=== PATIENT | female | born 1955 | race Caucasian/White ===

== ENCOUNTER 2016-12-25 11:20 | Observation (INO) | payer MEDICAID ==
[~2016-12-25] VITALS: Ht 175.3 cm; Wt 95.9 kg
--- NOTE | ~2016-12-25 | HEMODYNAMI ---
PATIENT:JOHN PRETTY MEDICAL RECORD: [id number] : 53 LOCATION:[facility] D2124 [facility]# [id number] ADMISSION DATE: 12/25/16 Generatedon:12/26/201611:09 Patient name: JOHN PRETTY Patient #: [id number] SSN: D OB: 1955 Date of study: 12/26/2016 Page: Of Hemodynamic Procedure Report Patient Data Patient Demographics Procedure consent was obtained First Name: JOHN Gender: Female Last Name: MARIA DE JESUS : 1955 [facility] Initial: R Age: 61 year(s) Patient #: [id number] Race: Unknown Additional ID: [id number] Contact details [address]: [address] [place] [address] State: [place] City: [place] Zip code: [address] Past Medical History Allergies Allergen Reaction Date Comments Reported Other allergy 12/26/2016 Robaxin, Demerol, Codiene Admission Admission Data Admission Date: 12/25/2016 Admission Time: 14:55 Room #: D.2124 Lab Results Lab Result Date: 12/26/2016 Lab Result Time: 0:00 Biochemistry Name Units Result Min Max Creatinine mg/dl 0.8 --(-*--)-- 0.6 1.3 CBC Name Units Result Min Max Hemoglobin g/dl 14.7 --(-*--)-- 13.5 17.5 Procedure Procedure Types Cath Procedure Diagnostic Procedure C [facility] w/Coronaries Miscellaneous Procedures Moderate Sedation up to 15 minutes Procedure Description Procedure Date Procedure Date: 12/26/2016 Procedure Start Time: 10:58 Procedure End Time: 11:09 Procedure Staff Name Function Clay Davis MD Performing Physician Fazal Locke RT Scrub John Farr RN Nurse Michelle Tristan RT Monitor Procedure Data Cath Procedure Fluoroscopy Diagnostic fluoroscopy Total fluoroscopy Time: 0.8 time: 0.8 min min Diagnostic fluoroscopy Total fluoroscopy dose: 382 dose: 382 mGy mGy Contrast Material Contrast Material Type Amount (ml) Isovue 300 67 Entry Location Entry Primary Successful Side Size Upsize Upsize Entry Closure Aguila ccessful Closure Location (Fr) 1 (Fr) 2 (Fr) Remarks Device Remarks Radial Right 6 Fr Mechanical artery Short Compression Estimated blood loss: 5 ml Diagnostic catheters Device Type Used For End Catheter Placement Terumo 5Fr Brian 110cm LV Angiography catheter Terumo 5Fr Brian 110cm Left Coronary catheter Angiography Terumo 5Fr Brian 110cm Right Coronary catheter Angiography Procedure Complications No complications Procedure Medications Medication Administration Route Dosage Oxygen NC 2 l/min Heparin Flush Bag added to field 2 bags (1000units/500ml NS) Lidocaine 2% added to field 20 Radial Cocktail added to field 1 syringe (Verapomil 2mg/Nitro 400mcg/Heparin 1500units) Versed I.V. 1 mg Fentanyl I.V. 50 mcg Radial Cocktail I.A. 1 syringe (Verapomil 2mg/Nitro 400mcg/Heparin 1500units) Versed I.V. 1 mg Fentanyl I.V. 50 mcg Hemodynamics Rest HGB: 14.7 (g/dl) Heart Rate: 70 (bpm) Pressure Samples Time Site Value (mmHg) Purpose Heart Use Rate(bpm) 11:01 LV 109/11,12 EDP 75 11:02 AO 110/68(85) Pullback 79 11:02 LV 122/1,18 Pullback 79 Gradients Valve Time Site 1 Site 2 Mean SEP/DFP Peak To Heart Use (mmHg) (sec/min) Peak Rate (mmHg) (bpm) Aortic 11:02 LV AO 6 19 12 79 122/1,18 110/68(85) Calculations Valve P-P Mean Valve Index Valve Source Name Gradient Area Flow (cm2) Aortic 12 6 12 6 Snapshots Pre Cath Intra NCS Post Cath Vital Signs Time Heart Resp SPO2 etCO2 VP5xnns NIBP Rhythm Pain Sedation Rate (ipm) (%) (mmHg) (mmHg) (mmHg) Status Level (bpm) 10:39:00 67 16 97 0 0 133/62(98) NSR 0 (11) 10(A) , No pain 10:43:18 62 15 98 0 0 126/56(98) NSR 0 (11) 10(A) , No pain 10:47:40 69 14 98 0 0 120/54(87) NSR 0 (11) 10(A) , No pain 10:51:58 69 16 95 0 0 107/55(76) NSR 0 (11) 10(A) , No pain 10:56:12 63 16 95 0 0 95/50(72) NSR 0 (11) 10(A) , No pain 11:01:09 72 16 96 0 0 120/57(84) NSR 0 (11) 9(A) , No pain 11:05:21 83 16 96 0 0 100/53(76) NSR 0 (11) 10(A) , No pain Medications Time Medication Route Dose Verified Delivered Reason Notes Effectiveness by by 10:38:04 Oxygen NC 2 l/min Clay John Per Octa Yordan RIBERA physician 10:38:14 Heparin Flush added 2 bags Clay Clay used for Bag to [facility] procedure (1000units/500ml field MD XAVIER NS) 10:38:22 Lidocaine 2% added 20ml Clay [facility] XAVIER 10:41:15 Radial Cocktail added 1 Clay Clay used for (Verapomil to syringe [facility] procedure 2mg/Nitro field MD XAVIER 400mcg/Heparin 1500units) 10:55:36 Versed I.V. 1 mg Clay John for sedation St. Aditya Farr RN, MD 10:55:43 Fentanyl I.V. 50 mcg Clay John for sedation St. Aditya Farr RN, MD 10:58:43 Versed I.V. 1 mg Clay John for sedation St. Aditya Farr RN, MD 10:58:57 Fentanyl I.V. 50 mcg Clay John for sedation RyanAditya Farr RN, MD 11:00:40 Radial Cocktail I.A. 1 Clay Clay for (Verapomil syringe Octa Ryan hypertension 2mg/Nitro MD XAVIER 400mcg/Heparin 1500units) Procedure Log Time Note 10:25:47 Fazal Locke RT(R) sent for patient. Start room use. 10:25:48 Time tracking: Call back 10:25:58 Plan of Care:Hemodynamics will remain stable., Cardiac rhythm will remain stable., Comfort level will be maintained., Respiratory function will remain adequate., Patient/ family verbilizes understanding of procedure., Procedure tolerated without complication., Recovers from procedure without complications.. 10:29:17 Patient received from PCU to CCL 1 Alert and oriented. Tansferred to table in Supine position. 10:29:18 Warm blankets applied, and nic hugger turned on for patient comfort. 10:29:19 Correct patient and procedure confirmed by team. 10:29:20 Signed procedure consent form obtained from patient. 10:29:21 ECG and BP/O2 sat monitors applied to patient. 10:29:22 Full Disclosure recording started 10:37:48 Vital chart was started 10:37:49 Baseline sample Acquired. 10:38:04 Oxygen 2 l/min NC was given by John Farr RN; Per physician; 10:38:14 Heparin Flush Bag (1000units/500ml NS) 2 bags added to field was given by Clay Davis MD; used for procedure; 10:38:22 Lidocaine 2% 20ml vial added to field was given by Clay Davis MD; used for procedure; 10:41:15 Radial Cocktail (Verapomil 2mg/Nitro 400mcg/Heparin 1500units) 1 syringe added to field was given by Clay Davis MD; used for procedure; 10:42:06 Rhythm: sinus rhythm 10:42:16 H&P Date Dictated: 12/26/2016 Within 30 days and on chart.. 10:42:19 Pre-procedure instructions explained to patient. 10:42:20 Pre-op teaching completed and patient verbalized understanding. 10:42:21 Family unavailable. 10:42:28 Patient NPO since Dinner. 10:42:46 Patient allergic to Other allergyRobaxin, Demerol, Codiene 10:42:48 Is the patient allergic to Iodine/contrast media? No. 10:42:50 Is patient on blood thinner?No 10:42:53 Patient diabetic? No. 10:42:56 Previous problem with sedation/anesthesia? No ? 10:42:58 Snore? Yes 10:42:59 Sleep apnea? No 10:43:00 Deviated septum? No 10:43:00 Opens mouth fully? Yes 10:43:01 Sticks out tongue? Yes 10:43:03 Airway obstruction? No ? 10:43:05 Dentures? No ? 10:43:09 Pre procedure: right dorsailis pedis pulse 2+ Normal; easily identifiable; not easily obliterated 10:43:12 Modified Darren's test Ulnar < 7 seconds 10:43:14 Patient pain scale 0/10 ?. 10:43:18 IV patent on arrival in left hand with 0.9% NaCl at [facility]. 10:44:45 Lab Result : Hemoglobin 14.7 g/dl 10:44:45 Lab Result : Creatinine 0.8 mg/dl 10:44:49 Lab results completed and on chart. 10:44:54 Right Radial & Right Groin area was prepped with chlora-prep and draped in sterile fashion 10:44:55 Alarms reviewed by R. N. 10:44:55 Sharps counted by scrub and verified by R.N. 10:44:59 Use device set Radial Dx 10:45:00 Acist Syringe opened to sterile field. 10:45:00 Medline Cath Pack opened to sterile field. 10:45:01 Bag Decanter opened to sterile field. 10:45:01 Terumo 6Fr Slender Glidesheath opened to sterile field. 10:45:02 St Jairo 260cm J .035 wire opened to sterile field. 10:45:02 Acist Hand Control opened to sterile field. 10:45:02 Acist Manifold opened to sterile field. 10:45:03 Tegaderm 4 x 4 opened to sterile field. 10:48:45 Physician paged 10:49:18 Zero performed for pressure channel P1 10:49:22 Zero performed for pressure channel P1 10:49:26 Zero performed for pressure channel P1 10:49:29 Zero performed for pressure channel P1 10:49:33 Zero performed for pressure channel P1 10:55:09 Final Timeout: patient, procedure, and site verified with staff and physician. All members of the team are in agreement. 10:55:12 Right Radial site verified by team. 10:55:14 Physical assessment completed. ASA score P 2 - A patient with mild systemic disease as per Clay Davis MD. 10:55:18 Sedation plan: IV Moderate Sedation Versed, Fentanyl 10:55:36 Versed 1 mg I.V. was given by John Farr RN; for sedation; 10:55:43 Fentanyl 50 mcg I.V. was given by John Farr RN; for sedation; 10:58:14 Procedure started. 10:58:21 Local anesthetic to right radial artery with Lidocaine 2% by Clay Davis MD.INITIAL ACCESS ONLY 10:58:43 Versed 1 mg I.V. was given by John Farr RN; for sedation; 10:58:57 Fentanyl 50 mcg I.V. was given by John Farr RN; for sedation; 11:00:04 A 6 Fr Short sheath was inserted into the Right Radial artery 11:00:40 Radial Cocktail (Verapomil 2mg/Nitro 400mcg/Heparin 1500units) 1 syringe I.A. was given by Clay Davis MD; for hypertension; 11:01:02 A Terumo 5Fr Brian 110cm catheter was advanced over the wire and used for LV Angiography. 11:01:48 LV gram done using MOREL 11:01:49 LV hemodynamics recorded. 11:01:56 Injector settings: Ml/sec: 10, Volume: 20, 11:02:00 EF : 55 % 11:02:31 A Terumo 5Fr Brian 110cm catheter was advanced over the wire and used for Left Coronary Angiography. 11:03:38 A Terumo 5Fr Brian 110cm catheter was advanced over the wire and used for Right Coronary Angiography. 11:03:40 Catheter removed. 11:03:52 Sheath removed intact; hemostasis achieved with Mechanical Compression to the Right Radial artery. 11:03:59 Terumo TR Band Standard opened to sterile field. 11:04:03 Procedure ended.(Physican Out) 11:04:15 Fluoroscopy time 00.80 minutes. 11:04:20 Fluoroscopy dose: 382 mGy 11:04:20 Flurop Dose total: 382 11:04:24 Contrast amount:Isovue 300 67ml. 11:04:26 Sharps counted by scrub and verified by R.N. 11:04:27 TR band inflated with 12cc of air. 11:04:30 Insertion/operative site no bleeding no hematoma. 11:04:38 Post right radial artery:stable, clean and dry 11:04:40 Post Procedure Pulses reassessed and unchanged 11:04:47 Post-procedure physical assessment completed. ASA score P 2 - A patient with mild systemic disease as per Clay Davis MD. 11:04:50 Post procedure rhythm: unchanged. 11:04:53 Estimated blood loss: 5 ml 11:04:54 Post procedure instruction explained to patient.Patient verbalizes understanding. 11:04:55 Patient needs reinforcement of post procedure teaching. 11:05:03 Procedure type changed to Cath procedure, Diagnostic procedure, LHC, LHC w/Coronaries, Miscellaneous Procedures, Moderate Sedation up to 15 minutes 11:05:16 Procedure Complication : No complications 11:05:18 See physician's report for complete and final results. 11:06:47 Procedure and supply charges have been captured, reviewed, submitted and are correct. 11:09:06 Vital chart was stopped 11:09:08 Report given to PCU. 11:09:12 Patient transfered to PCU with Bed. 11:09:21 Procedure ended. 11:09:21 Full Disclosure recording stopped 11:09:27 End room use (Document Last) Device Usage Item Name Manufacture Quantity Catalog Hospital Part Current Minimal Lot# / Number Charge Number Stock Stock Serial# Code Acist Acist 1 90183 749078 169585 800713 20 Syringe [employer] Inc Medline Cardinal 1 [id number] [id number] 51909 [id number] 5 Cath Pack Health Bag Microtek 1 2001S 225038 93420 098007 5 Decanter [employer]. Terumo 6Fr Terumo 1 [id number] 923551 337252 915521 [address] St Jairo 1 395080 383604 319803 326542 30 260cm J .035 wire Acist Hand Acist 1 81037 856033 069080 130904 5 Control Medical [employer] Inc Acist Acist 1 91888 333228 097230 799301 5 Manifold Medical [employer] Inc Tegaderm 4 3M 1 1626W 010093 025450 706837 5 x 4 Terumo 5Fr Terumo 1 42-6091 886374 954790 904908 5 Brian 110cm catheter Terumo TR Terumo 1 [id number] 991025 290856 276758 40 Band Standard Signature Audit [place] Stage Time Signature Unsigned Intra-Procedure 12/26/2016 Michelle 11:09:46 AM Counts RT(R) Signatures Monitor : Michelle Signature : Counts RT Date : Time : [address] [place] [address]
[2016-12-25 12:08] LABS: BASOPHILS 0.3 % (0.0-2.0); EOSINOPHILS 2.1 % (0-7); HEMATOCRIT 42.2 % (36.0-48.0); HEMOGLOBIN 14.1 g/dL (12-16); IMMATURE GRANULOCYTES 0.3 % (0-5); LYMPHOCYTES 30.4 % (15-50); MCH 31.1 pg (26.0-34.0); MCHC 33.4 g/dL (31.0-37.0); MEAN PLATELET VOLUME 10.5 fL (7.4-10.4); MONOCYTES 6.3 % (2-11); NEUTROPHILS 60.6 % (40-80); PLATELET COUNT 289 10x3/uL (130-400); RBC 4.54 10x6/uL (4.00-5.40); RDW 13.3 % (11.5-14.5)
[2016-12-25 12:19] LABS: ALKALINE PHOSPHATASE 98 U/L (46-116); ALT (SGPT) 24 U/L (10-68); BILIRUBIN - TOTAL 0.52 mg/dL (0.2-1.3); CALC OSMOLALITY 280 mosm/kg (275-300); CALCIUM 9.4 mg/dL (8.5-10.1); CARBON DIOXIDE 29.9 mmol/L (21.0-32.0); CHLORIDE - SERUM 102 mmol/L (98-107); CREATININE - SERUM 0.9 mg/dL (0.6-1.3); GLUCOSE 108 mg/dL (74-106); POTASSIUM - SERUM 3.8 mmol/L (3.5-5.1); PROTEIN - SERUM 7.9 g/dL (6.4-8.2); SODIUM 140 mmol/L (136-145); UREA NITROGEN 14 mg/dL (7-18); eGFR NON AFRICAN AMERICAN 67 mL/min (90-120)
[2016-12-25 12:31] LABS: CHOLESTEROL, TOTAL 259 mg/dL (0-200); CKMB 0.9 U/L (0.0-3.6); CREATINE KINASE 54 UL (21-215); HDL CHOLESTEROL 43 mg/dL (32-96); LDL CHOLESTEROL 173 mg/dL (0-100); MAGNESIUM - SERUM 2.2 mg/dL (1.8-2.4); TRIGLYCERIDE 215 mg/dL (30-200)
[2016-12-25 12:36] LABS: TROPONIN-I < 0.017 ng/mL (0.000-0.060)
[2016-12-25] MEDS ORDERED: BAYER CHEWABLE81 MG PO (15:34)
[2016-12-25] MEDS ORDERED: HYZAAR 50-12.51 TAB PO (15:34)
[2016-12-25] MEDS ORDERED: K-TAB10 MEQ PO (15:35)
[2016-12-25 15:36] VITALS: BP 107/83; BMI 26.2
--- NOTE | 2016-12-25 15:53 | NUR ---
PT TO ROOM ALERT AND ORIENTED VS WNL. PT SITTING UP IN BED EATING. DENIES NEEDS. ON TELE. ADMISSION COMPLETE WILL CONT TO MONITOR.
--- NOTE | 2016-12-25 17:53 | NUR ---
PT SITTING UP IN BED DENIES NEEDS AT THIS TIME WILL CONT TO MONITOR.
--- NOTE | 2016-12-25 20:19 | NUR ---
RESTING IN BED. TALKATIVE. NONLABORED RESPIRATIONS ON ROOM AIR. SR PER TELEMETRY. DENIES PAIN OR DISCOMFORT AT THIS TIME. SALINE LOCK TO LEFT A/C. SEE ASSESSMENT. CPOC. CALL LIGHT IN REACH.
[2016-12-25 20:55] VITALS: BP 119/66
[2016-12-26 00:11] VITALS: BP 107/65
--- NOTE | 2016-12-26 04:37 | NUR ---
PT HAS RESTED WITH NO DISTRESS THIS SHIFT. SR PER TELEMETRY. SALINE LOCK TO LEFT A/C. NPO UNTIL SEEN BY LABORER ROAD THIS AM.
[2016-12-26 04:49] VITALS: BP 113/64
--- NOTE | 2016-12-26 07:50 | NUR ---
ASSESSMENT DONE. PT SITTING UP IN BED WATCHING TV. A/O. DENIES CP OR DISCOMFORT AT THIS TIME. DENIES SOB, BUT C/O A "TIGHTNESS" WHEN SHE TRIES TO TAKE A BIG BREATH. PT CURRENTLY 98% ON RA, BUT HAS NC IN ROOM. NURSE PUT PT ON O2 AT 2L. WILL CONT. TO MONITOR. CALL LIGHT WITH IN REACH. PT CONTS. TO BE NPO PENDING ORDERS FROM DR. QUESADA.
[2016-12-26 08:01] VITALS: BP 115/66
--- NOTE | 2016-12-26 09:45 | NUR ---
UP ADLIB IN ROOM. CENTRAL SUPPLY TECHNICIAN AT ASSISTING WITH NEEDS. WILL CONT. PLAN OF CARE.
--- NOTE | 2016-12-26 10:00 | NUR ---
CONSENTS SIGNED FOR HEART CATH. PRE-OP MEDS GIVEN
--- NOTE | 2016-12-26 10:25 | NUR ---
PT TO COUNTERINTELLIGENCE AGENT VIA BED.
[2016-12-26 10:26] LABS: BASOPHILS 0.4 % (0.0-2.0); EOSINOPHILS 2.5 % (0-7); HEMATOCRIT 45.8 % (36.0-48.0); HEMOGLOBIN 14.7 g/dL (12-16); IMMATURE GRANULOCYTES 0.1 % (0-5); LYMPHOCYTES 34.7 % (15-50); MCH 31.1 pg (26.0-34.0); MCHC 32.1 g/dL (31.0-37.0); MEAN PLATELET VOLUME 10.8 fL (7.4-10.4); MONOCYTES 6.8 % (2-11); NEUTROPHILS 55.5 % (40-80); PLATELET COUNT 254 10x3/uL (130-400); RBC 4.73 10x6/uL (4.00-5.40); RDW 13.5 % (11.5-14.5); WBC 8.4 10x3/uL (4.8-10.8)
[2016-12-26 10:31] VITALS: Ht 175.3 cm; Wt 95.9 kg
[2016-12-26 10:31] LABS: CALC OSMOLALITY 277 mosm/kg (275-300); CALCIUM 9.3 mg/dL (8.5-10.1); CARBON DIOXIDE 24.8 mmol/L (21.0-32.0); CHLORIDE - SERUM 103 mmol/L (98-107); CREATININE - SERUM 0.8 mg/dL (0.6-1.3); GLUCOSE 104 mg/dL (74-106); POTASSIUM - SERUM 3.6 mmol/L (3.5-5.1); SODIUM 138 mmol/L (136-145); UREA NITROGEN 17 mg/dL (7-18); eGFR NON AFRICAN AMERICAN 77 mL/min (90-120)
[2016-12-26 10:34] LABS: MCV 96.8 fL (80.0-100.0)
--- NOTE | 2016-12-26 11:20 | NUR ---
PT BACK FROM [facility] [facility]EARCHER. TR BAND TO RIGHT WRIST. SITE WITTOUT S/S OF BLEEDING OR HEMATOMA. PT WEARING SPLINT TO WRIST WELL. INTRUCTED PT TO REFRAIN FROM MOVING HAND OR WRIST. PT VERBALIZED UNDERSTANDING. DENIES PAIN OR DISCOMFORT AT THIS TIME. CALL LIGHT WITH IN REACH. WILL CONT. TO MONITOR. VS- B/P 131/58, HR-70, TEMP 97.3, R-16.
[2016-12-26 12:02] VITALS: BP 131/58
--- NOTE | 2016-12-26 13:27 | NUR ---
5ML OF AIR RELEASED FROM TR BAND. SPLINT STILL IN PLACE. NO BLEEDING OR HEMATOMA NOTED. WILL CONT. TO MONITOR.
--- NOTE | 2016-12-26 14:41 | NUR ---
AIR RELEASED FROM TR BAND AND TR BAND AND SPLINT REMOVED. TO BLEEDING OR S/S OF HEMATOMA. PT'S TELEMETRY REMOVED. PT AWAITING D/C PAPERWORK. AND STAFFF WILL CALL PT A TAXI. NURSE EXPLAINED PT IS TO REFRAIN FROM DRIVING FOR 24H AND CANNOT DRIVE TO [place] UNTIL WEDNESDAY. PT VERBALIZED UNDERSTANDING.
--- NOTE | 2016-12-26 15:59 | NUR ---
D/C INSTRUCTIONS GIVEN TO PT. IV REMOVED. PT TO D/C HOME VIA TAXI.
--- NOTE | 2016-12-26 16:01 | NUR ---
PT TAKEN TO FRONT ENTRANCE VIA W/C TO WAIT ON TAXI.
--- NOTE | 2016-12-28 08:24 | HP ---
PATIENT: JOHN PRETTY MEDICAL RECORD: [id number] ACCOUNT: [id number] LOCATION:[address] : 53 ADMISSION DATE: 12/25/16 HISTORY AND PHYSICAL EXAMINATION HISTORY OF PRESENT ILLNESS: A 61-year-old lady, who I have seen previously with a history of chest pain. She underwent a Cardiolite stress testing and echocardiograph study, negative at that time. However, presents to the ER with chest pressure and tightness that lasted about 20 minutes, radiating to the throat and back accompanied by diaphoresis and apprehension feeling, no palpitations ____ symptomatology. We are asked to see her concerning her cardiovascular status. PAST MEDICAL HISTORY: Includes history of hypertension. SOCIAL HISTORY: Lives here in [place]. She is a nonsmoker and nondrinker. She takes care all of her ADLs. ALLERGIES: CODEINE, ROBAXIN, AND DEMEROL. MEDICATIONS: Typically include Hyzaar 50/12.5 q. day and aspirin q. day. REVIEW OF SYSTEMS: The patient reports easy bruising but reports no swollen glands. The patient reports no fever, no night sweats, no significant weight gain, no significant weight loss. No significant exercise tolerance. The patient reports no dry eyes, no irritation, no vision change. Patient reports no difficulty hearing and no ear pain. Patient reports no frequent nose bleeds or nose and sinus problems. Patient reports on arm pain on exertion. No shortness of breath while lying down. No history of heart murmur. Patient reports no cough, no wheezing or coughing up blood. Patient reports no abdominal pain, no vomiting. Normal appetite. No diarrhea and not vomiting blood. No nausea and no constipation. Patient reports no incontinence. No difficulty urinating. No hematuria. No increased frequency. Patient reports no muscle aches. No weakness, no arthralgias, no back pain. No swelling of the extremities. Patient reports no abnormal mole, no jaundice, no rashes. Reports no loss of consciousness. No weakness and no numbness. No seizures, dizziness, or headaches. The patient reports no depression, no sleep disturbance, feeling safe in a relationship and no alcohol abuse. Patient reports on fatigue. Reports no runny nose or sinus pressure. No itching, no hives, and no frequent sneezing. PHYSICAL EXAMINATION: GENERAL: Within normal acute distress, appears stated age. VITAL SIGNS: ____ pulse 74 and regular. HEENT: Normocephalic and atraumatic. NECK: Negative JVD or bruit. HEART: Regular. LUNGS: Calderon clear. ABDOMEN: Soft and nontender. EXTREMITIES: Pulse 2+. There is no edema. DIAGNOSTIC DATA: ECG without acute change. IMPRESSION: Acute coronary syndrome. HISTORY AND PHYSICAL [id number] JOHN PRETTY PLAN: For diagnostic angiography, intervention based on above. TRANSINT:[id number] Voice Confirmation ID: [id number] DOCUMENT ID: [id number] DELGADO HICKS MD at 0824 CC: [id number] DICTATION DATE: 12/26/16922 MIGRATION AGENT: 12/26/16 1141 DIS IN 12/26/16 [facility] [address] [place] [address]
--- NOTE | 2016-12-28 08:24 | OP ---
PATIENT NAME: JOHN PRETTY MEDICAL RECORD: [id number] :53 LOCATION:D.M2 D.2124 ADMISSION DATE:12/25/16 SURGEON: DELGADO HICKS MD DATE OF OPERATION: 12/26/2016 PROCEDURE: Left heart catheterization, selective coronary angiography, right radial approach. CATHETERS: A 5-Italian sheath, 5/4 left and right Seth, 5/4 pig. The procedure was well tolerated and the patient returned to the calderón. Sheath was removed. TR band was placed. FINDINGS: Left ventriculography in the 30-degree MOREL view: Normal wall motion and normal systolic function. CORONARY ANATOMY: Left main: Left main is free of disease. LAD: LAD is free of disease in the diagonal system. CIRCUMFLEX: Free of disease in the marginal system RIGHT CORONARY ARTERY: Dominant artery, gives rise to PDA, free of disease. IMPRESSION: Normal systolic function. Normal coronary anatomy. TRANSINT:[id number] Voice Confirmation ID: [id number] DOCUMENT ID: [id number] DELGADO HICKS MD at 0824 CC: [id number] DICTATION DATE: 12/26/16 1115 LOG RIDER: 12/26/16 1640 DIS IN 12/26/16 [address] [place] [address]
--- NOTE | 2017-01-14 14:36 | DS ---
PATIENT:JOHN PRETTY :53 MEDICAL RECORD: [id number] DISCHARGE SUMMARY ADMISSION DATE: 12/25/16 DISCHARGE DATE: 12/26/16 PROBLEM LIST: 1. Chest pain. 2. Hypertension. BRIEF HISTORY AND HOSPITAL COURSE: A 61-year-old lady with a history of chest pain, underwent noninvasive workup in the office; however, in the ER continues to have chest pain, feel diagnostic angiography is indicated to exclude coronary artery disease, underwent angiography which showed no evidence of obstructive coronary artery disease and discharged home in good condition. ACTIVITY: As tolerated. DIET: AHA diet. TRANSINT:[id number] Voice Confirmation ID: [id number] DOCUMENT ID: [id number] DELGADO HICKS MD at 1436 CC: [id number] DICTATION DATE: 01/12/17 1419 DIRECTOR OF DISTRIBUTION: 01/13/17 0214 DIS IN 12/26/16 [id number] [place] [address]
== END 2016-12-26 15:55 | disposition home or self-care (01) ==
LOC: D.ER 11:20 → D.M2 14:55 → OBSVTIME 14:55 → D.M2 12-26 15:55
PROVIDERS: Emergency Medicine; ADMIT Internal Medicine Interventional Cardiology
DX: R07.9 Chest pain, unspecified (principal); I10 Essential (primary) hypertension

== ENCOUNTER → 2017-08-02 10:42 | Outpatient (CLI) | payer MEDICAID ==
[2016-12-26 10:31] VITALS: BMI 31.2
[~2017-08-02 10:42] MED LIST: BAYER CHEWABLE81 MG PO; BENICAR HCT 20-1 TA1 PO; HYZAAR 50-12.51 TAB PO; K-TAB10 MEQ PO
== END | disposition home or self-care (01) ==
LOC: D.MRI 10:42
DX: M25.561 Pain in right knee (principal)

== ENCOUNTER → 2017-08-16 05:12 | Day surgery (SDC) | payer MEDICAID ==
[2016-12-26 10:31] VITALS: BMI 31.2
[2017-08-12 17:01] LABS: HEMOGLOBIN 13.5 g/dL (12-16); MCH 30.7 pg (26.0-34.0); MCHC 32.9 g/dL (31.0-37.0); MCV 93.2 fL (80.0-100.0); MEAN PLATELET VOLUME 9.9 fL (7.4-10.4); RBC 4.4 10x6/uL (4.00-5.40); RDW 14.1 % (11.5-14.5); WBC 10.6 10x3/uL (4.8-10.8)
== END | disposition home or self-care (01) ==
LOC: D.OPS 05:12 → D.PAN 18:00 → D.OPS 18:00
PROVIDERS: Anesthesiology
DX: S83.241A Other tear of medial meniscus, current injury, right knee, initial encounter (principal); Z01.810 Encounter for preprocedural cardiovascular examination; Z01.811 Encounter for preprocedural respiratory examination; Z01.812 Encounter for preprocedural laboratory examination; Z53.9 Procedure and treatment not carried out, unspecified reason